=== PATIENT | male | born 1995 | race Two or more races ===

== ENCOUNTER 2016-03-29 04:36 | Emergency (ER) ==
[2016-03-29 04:46] VITALS: BP 181/105; TEMP 98.3; BMI 25.7
[2016-03-29 05:25] LABS: BASOPHILS % (AUTO) 0.3 % (0.0-3.0); EOSINOPHILS # (AUTO) 0.2 K/ul (0.0-0.7); EOSINOPHILS % (AUTO) 2.2 % (0.0-7.0); HEMOGLOBIN 14.2 g/dl (14.0-18.0); IMMATURE GRANULOCYTE % (AUTO) 0.1 % (0.0-5.0); LYMPHOCYTES # (AUTO) 3.4 K/uL (0.60-3.4); LYMPHOCYTES % (AUTO) 45.1 (10.0-50.0); MEAN CORPUSCULAR HEMOGLOBIN 29.3 pg (27.0-31.0); MEAN CORPUSCULAR VOLUME 88.8 fl (80.0-94.0); MONOCYTES # (AUTO) 0.5 K/uL (0.4-2.0); MONOCYTES % (AUTO) 6.7 (0-10); NEUTROPHILS # (AUTO) 3.5 K/ul (2.0-6.9); NEUTROPHILS % (AUTO) 45.6; PLATELET COUNT 273 10^3/uL (140-440); RED BLOOD COUNT 4.84 10^6/ul (4.70-6.10); WHITE BLOOD COUNT 7.61 K/ul (4.2-10.2)
--- NOTE | 2016-03-29 05:32 | ED.PDOC ---
General ED Provider: Dr. CARMELO SZYMANSKI Chief Complaint: Chest Pain Stated Complaint: patient is a 21 year old male who has had palpitation off an on for few years. Had a Holter monitor test with no significant finding. States that symtoms became worse this morning. Denies any chest pain. Denies using drugs or alcohol or supplimental dinks of diet pills. Time Seen by Physician: 05:15 Mode of Arrival: Walk-In Information Source: Family Nursing and Triage Documentation Reviewed and Agree: Yes Cardiovascular Complaint Exam - Palpitations Complaint/Exam Onset/Duration: 1 day Symptoms Are: Still present Timing: Intermittent Initial Severity: Mild Current Severity: Mild Character: Reports: Skipped beats Aggravating: Reports: None Alleviating: Reports: None Associated Signs and Symptoms: Denies: Lightheadedness, Dizziness, Syncope, Chest pain, Shortness of breath, Diaphoresis, Nausea, Vomiting Related History: Similar episode (for the past few years) Related Surgical History: Reports: None Cardiac Risk Factors: Reports: None Pulmonary Embolism Risk Factors: Reports: None Atrial Fibrillation Risk Factors: Reports: None Thyroid Exam: Normal Quality Indicator For Non-Traumatic Chest Pain/Syncope: EKG Performed Review of Systems - Review Of Systems Constitutional: Reports: No symptoms Eyes: Reports: No symptoms Ears, Nose, Mouth, Throat: Reports: No symptoms Respiratory: Reports: No symptoms Cardiac: Reports: Palpitations GI: Reports: No symptoms : Reports: No symptoms Musculoskeletal: Reports: No symptoms Skin: Reports: No symptoms Neurological: Reports: Anxiety Endocrine: Reports: No symptoms Hematologic/Lymphatic: Reports: No symptoms All Other Systems: Reviewed and Negative Past Medical History - Past Medical History Endocrine: Reports: None Cardiovascular: Reports: Other (Palpitations ) Respiratory: Reports: None Hematological: Reports: None Gastrointestinal: Reports: None Genitourinary: Reports: None Neuro/Psych: Reports: None Musculoskeletal: Reports: None Cancer: Reports: None - Surgical History General Surgical History: Reports: None - Family History Family History: Reports: None - Social History Smoking Status: Former smoker Hx Substance Use: No Alcohol Screening: None - Immunizations Tetanus Shot up to Date: No Physical Exam - Physical Exam Appearance: Well-appearing Eyes: JEANETH, EOMI, Conjunctiva clear ENT: Ears normal, Nose normal, Oropharynx normal Respiratory: Airway patent, Breath sounds clear, Breath sounds equal, Respirations nonlabored Cardiovascular: RRR, Pulses normal, No rub, No murmur GI/: Soft, Nontender, No masses, Bowel sounds normal, No Organomegaly Musculoskeletal: Normal strength, ROM intact, No edema, No calf tenderness Skin: Warm, Dry, Normal color Neurological: Sensation intact, Motor intact, Reflexes intact, Cranial nerves intact, Alert, Oriented Psychiatric: Affect appropriate, Mood appropriate Interpretation - Language Pathologist Rate: Normal Rhythm: Sinus Ectopy: None - EKG Interpretation Time of EKG #1: 05:22 Rate: Normal Rhythm: Sinus Ectopy: None [place]: NL ST Segment: Normal Interpretation: normal EKG Critical Care Note - Critical Care Note Total Time (mins): 0 Course - Course Hematology/Chemistry: 03/29/16 05:15 03/29/16 05:15 Orders, Labs, Meds: Lab Review 03/29/16 03/29/16 05:15 05:32 WBC 7.61 RBC 4.84 Hgb 14.2 Hct 43.0 MCV 88.8 MCH 29.3 MCHC 33.0 RDW Coeff of [place] 12.8 Plt Count 273 Immature Gran % (Auto) 0.1 Neut % (Auto) 45.6 Lymph % (Auto) 45.1 Edgar % (Auto) 6.7 Eos % (Auto) 2.2 Baso % (Auto) 0.3 Immature Gran # (Auto) 0.0 Neut # 3.5 Lymph # 3.4 Edgar # 0.5 Eos # 0.2 Baso # 0.0 Sodium 143 Potassium 3.3 L Chloride 108 H Carbon Dioxide 25 Anion Gap 13.3 BUN 11 Creatinine 1.12 H Estimated GFR (MDRD) 82.00 BUN/Creatinine Ratio 9.82 Glucose 114 H Calcium 9.1 Total Bilirubin 0.30 AST 25 ALT 25 Alkaline Phosphatase 64 Total Creatine Kinase 438 CK-MB (CK-2) 0.8 CK-MB (CK-2) % 0.84592 Troponin I 0.0520 Total Protein 7.2 Albumin 4.1 Globulin 3.1 Albumin/Globulin Ratio 1.32 Urine Opiates Screen Negative Ur Oxycodone Screen Negative Urine Methadone Screen Negative Ur Propoxyphene Screen Negative Ur Barbiturates Screen Negative U Tricyclic Antidepress Negative Ur Phencyclidine Scrn Negative Ur Amphetamine Screen Negative U Methamphetamines Scrn Negative U Benzodiazepines Scrn Negative Urine Cocaine Screen Negative U Cannabinoids Screen Positive Orders Category Date Time Status EKG-(ED ONLY) Stat CARDIO 03/29/16 05:12 Ordered CBC W/ AUTO DIFF Stat LAB 03/29/16 05:15 Completed COMPREHENSIVE METABOLIC PANEL Stat LAB 03/29/16 05:15 Completed CREATINE KINASE Stat LAB 03/29/16 05:15 Completed DRUG SCREEN, URINE, RAPID Stat LAB 03/29/16 05:32 Completed MAGNESIUM Stat LAB 03/29/16 05:15 Received THYROID STIMULATING HORMONE Stat LAB 03/29/16 05:15 Received TROPONIN I Stat LAB 03/29/16 05:15 Completed Potassium Chloride [K-Dur] MEDS 03/29/16 06:14 Stat 20 meq PO ONCE STA Medications Generic Name Dose Route Start Last Admin Trade Name Freq PRN Reason Stop Dose Admin Potassium Chloride 20 meq 03/29/16 06:14 K-Dur PO 03/29/16 06:15 ONCE STA Vital Signs: Temp Pulse Resp BP Pulse Ox 03/29/16 04:38 98.3 F 92 H 20 181/105 H 98 HENRI Risk Score Age >/= 65: No >/= 3 CAD Risk Factors: No Known CAD (Stenosis >/= 50%): No ASA Use in Past 7 Days: No Severe Angina (>/= 2 episodes in 24 hours): No EKG ST Changes >/= 0.5mm: No Postive Cardiac Marker: No HENRI Total Score: 0 HENRI Risk Score: Risk Score Odds of by 30D 0 0.1 (0.1-0.2) 1 0.3 (0.2-0.3) 2 0.4 (0.3-0.5) 3 0.7 (0.6-0.9) 4 1.2 (1.0-1.5) 5 2.2 (1.9-2.6) 6 3.0 (2.5-3.6) 7 4.8 (3.8-6.1) Departure - Departure Time of Disposition: 06:20 Disposition: HOME SELF-CARE Discharge Problem: Palpitations, Hypokalemia Instructions: Palpitations (ED) Condition: Fair Pt referred to PMD for follow-up: Yes Additional Instructions: Do not use Drugs Eat more fruits/ Bananas Follow up with PCP in 2 days Allergies/Adverse Reactions: Allergies No Known Allergies Allergy (Verified 03/29/16 05:42) Home Medications: Ambulatory Orders 1 [No Reported Medications] 03/29/16 Disposition Discussed With: Patient, Family
[2016-03-29 06:01] LABS: ALBUMIN 4.1 g/dL (3.4-5.0); ALBUMIN/GLOBULIN RATIO 1.32; ANION GAP 13.3; BILIRUBIN,TOTAL 0.3 mg/dL (0.00-1.20); BUN/CREATININE RATIO 9.82; CALCIUM 9.1 mg/dL (8.2-10.2); CREATININE 1.12 mg/dL (0.60-1.10); POTASSIUM 3.3 mmol/L (3.5-5.1); TOTAL PROTEIN 7.2 g/dL (6.4-8.2); TROPONIN I 0.052 ng/ml (0.0000-0.4000)
[2016-03-29 06:01] LABS: COCAIN SCREEN,URINE NEGATIVE (NEGATIVE)
[2016-03-29 06:02] LABS: CREATINE KINASE MB 0.8 ng/ml (0.0-3.6)
[2016-03-29] MEDS ORDERED: K-DUR PO STA (06:14)
[2016-03-29 06:35] LABS: MAGNESIUM 2.5 mg/dL (1.7-2.2)
== END 2016-03-29 06:51 | disposition home or self-care (01) ==
LOC: ED 04:36
DX: R00.2 Palpitations (principal); E87.6 Hypokalemia
CPT/HCPCS: 36415; 80053; 80306; 82550; 82553; 83735; 84443; 84484; 85025; 93005; 93010; 99283